=== PATIENT | female | born 1945 | race Caucasian/White ===

== ENCOUNTER 2018-12-29 11:43 | Outpatient (CLI) | payer OTHER ==
[~2018-12-29 11:43] MED LIST: ALANINE MC; AROMASIN25 MG PO; NABUMETONE500 MG PO; PERCOCET 5/3251 TAB PO; TORADOL10 MG PO; [UNRECOGNIZED DRUG - OTHER] PO
== END 2018-12-29 11:53 | disposition home or self-care (01) ==
LOC: NUCLEAR 11:43
DX: M81.0 Age-related osteoporosis without current pathological fracture (principal); C50.411 Malignant neoplasm of upper-outer quadrant of right female breast; Z80.3 Family history of malignant neoplasm of breast

== ENCOUNTER → 2021-03-04 | Emergency (ER) | payer OTHER ==
[~2021-03-04] VITALS: Ht 160 cm; Wt 59.0 kg
[~2021-03-04] MED LIST changes: +AMLODIPINE-OLM1 EAC1; +EC-NAPROSYN500 MG; +LEVOTHYROXINE25 MCG; +NEURONTIN300 MG
== END | disposition home or self-care (01) ==
LOC: ER 15:51
DX: M79.605 Pain in left leg (principal); R20.0 Anesthesia of skin

== ENCOUNTER 2021-03-05 07:19 | Outpatient (CLI) | payer OTHER | END 2021-03-05 07:21 | disposition home or self-care (01) | LOC: NUCLEAR 07:19 | DX: I87.2 Venous insufficiency (chronic) (peripheral) (principal); R20.0 Anesthesia of skin ==

== ENCOUNTER → 2021-03-07 08:13 | Outpatient (CLI) | payer OTHER | END | disposition home or self-care (01) | LOC: NUCLEAR 08:13 | PROVIDERS: ATTEND General Practice | DX: R20.0 Anesthesia of skin (principal) ==

== ENCOUNTER 2023-09-13 09:00 | Inpatient (IN) | payer OTHER ==
[~2023-09-13] VITALS: Ht 160 cm; Wt 61.7 kg
[2023-09-13 10:09] LABS: HEMATOCRIT 37.5 % (36.0-45.00); HEMOGLOBIN 12.2 g/dL (12.0-15.00); MEAN CELL VOLUME 80.9 fL (80.00-100.00); MEAN CORPUSCULAR HEMOGLOBIN 26.3 pg (27.00-32.0); MEAN CORPUSCULAR HGB CONC 32.6 g/dl (32.0-36.0); PLATELET COUNT 250 K/uL (150-450); RED BLOOD COUNT 4.64 M/uL (4.00-6.00); RED CELL DISTRIBUTION WIDTH 14.5 % (11.5-14.5)
[2023-09-13] MEDS ORDERED: COZAAR50 MG PO (10:17)
[2023-09-13 10:55] LABS: PARTIAL THROMBOPLASTIN TIME 27.4 SECONDS (22.0-34.0); PROTHROMBIN TIME 10.5 SECONDS (9.0-11.5)
[2023-09-13 10:57] LABS: ALBUMIN 3.7 gm/dL (3.4-5.0); BILIRUBIN TOTAL 0.34 mg/dL (0.3-1.2); CALCIUM 9.6 mg/dL (8.5-10.1); CREATININE SERUM 0.81 mg/dL (0.55-1.02); GFR 68.75; GLOBULINA 3.5 G/DL (2.4-3.5); POTASSIUM 3.82 mEq/L (3.5-5.1); TOTAL PROTEIN 7.2 gm/dL (6.4-8.2)
[2023-09-13 11:12] LABS: URINE APPEARANCE Clear; URINE BILIRRUBIN Negative (NEGATIVE); URINE BLOOD Negative; URINE COLOR Yellow; URINE GLUCOSE Negative (NEGATIVE); URINE LEUKOCYTE Negative; URINE NITRATE Negative; URINE PROTEIN Negative (NEGATIVE); URINE UROBILINOGEN 0.2 E.U./dl
[2023-09-13 11:20] LABS: URINE BACTERIA 12.5 uL (0.0-1933)
[2023-09-13 11:23] LABS: URINE EPITHELIAL CELLS 0.6 uL (0.0-38.8); URINE RBC 1.8 uL (0.0-20.8); URINE WBC 0.3 uL (0.0-23.2)
[2023-10-04] MEDS ORDERED: VITAMIN D3250 MCG (10:30)
[2023-10-04 12:45] LABS: HEMATOCRIT 35.5 % (36.0-45.00); HEMOGLOBIN 11.6 g/dL (12.0-15.00); RED BLOOD COUNT 4.33 M/uL (4.00-6.00)
[2023-10-05 06:23] LABS: HEMOGLOBIN 10.7 g/dL (12.0-15.00); MEAN CELL VOLUME 80.5 fL (80.00-100.00); MEAN CORPUSCULAR HGB CONC 33.5 g/dl (32.0-36.0); PLATELET COUNT 206 K/uL (150-450); RED BLOOD COUNT 3.98 M/uL (4.00-6.00); RED CELL DISTRIBUTION WIDTH 14.8 % (11.5-14.5)
[2023-10-06 06:45] LABS: HEMATOCRIT 29.7 % (36.0-45.00); HEMOGLOBIN 9.9 g/dL (12.0-15.00); MEAN CORPUSCULAR HEMOGLOBIN 27.1 pg (27.00-32.0); MEAN CORPUSCULAR HGB CONC 33.5 g/dl (32.0-36.0); PLATELET COUNT 187 K/uL (150-450); RED BLOOD COUNT 3.67 M/uL (4.00-6.00); RED CELL DISTRIBUTION WIDTH 14.5 % (11.5-14.5)
[2023-10-06] MEDS ORDERED: BACTRIM DS TAB1 EACH PO (07:45)
[2023-10-06] MEDS ORDERED: XARELTO10 MG PO (07:45)
[2023-10-06] MEDS ORDERED: OXYC1TAB9 PO (07:45)
[2023-10-06] MEDS ORDERED: INTEGRA PLUS C1 EACH PO (07:45)
== END 2023-10-06 14:45 | disposition home or self-care (01) | DRG 470 ==
LOC: SURH 10-04 05:08 → O/R 10-04 05:08 → SURH 10-04 07:00
PROVIDERS: ADMIT Orthopaedic Surgery Sports Medicine; ATTEND Orthopaedic Surgery Sports Medicine
PROC: 0SRC0J9 Replacement of Right Knee Joint with Synthetic Substitute, Cemented, Open Approach (ICD-10-PCS; principal; 2023-10-04 07:00)
DX: M17.11 Unilateral primary osteoarthritis, right knee (principal); I10 Essential (primary) hypertension; E03.9 Hypothyroidism, unspecified

== ENCOUNTER → 2025-01-19 | Emergency (ER) | payer OTHER ==
[~2025-01-19] VITALS: Ht 162.6 cm; Wt 60.8 kg
[~2025-01-19] MED LIST changes: +0.9 % SODIUM CHLORIDE 1,000 ML IV SCH; +AMLODIPINE BESYL5 MG; +BACTRIM DS TAB1 EACH PO; +COZAAR50 MG PO; +CYANOCOBAL1000 MCG/1; +DIPHENOXYLATE HCL/ATROPINE 1 UDTAB TABLET PO ONE; +FAMOTIDINE/PF 20 MG in 0.9 % SODIUM CHLORIDE 8 ML IV PUSH STA; +FAMOTIDINE/PF 20 MG/2 ML VIAL ONE; +INTEGRA PLUS C1 EACH PO; +ONDANSETRON HCL 2 MG/ML VIAL IV ONE; +ONDANSETRON HCL 2 MG/ML VIAL ONE; +OXYC1TAB9 PO; +ROSUVASTATIN CAL5 MG PO; +VITAMIN D3250 MCG; +XARELTO10 MG PO
[2025-01-20 00:05] LABS: HEMATOCRIT 39.5 % (36.0-45.00); MEAN CELL VOLUME 80.8 fL (80.00-100.00); MEAN CORPUSCULAR HEMOGLOBIN 26.5 pg (27.00-32.0); MEAN CORPUSCULAR HGB CONC 32.8 g/dl (32.0-36.0); PLATELET COUNT 224 K/uL (150-450); RED BLOOD COUNT 4.89 M/uL (4.00-6.00); RED CELL DISTRIBUTION WIDTH 14.7 % (11.5-14.5)
[2025-01-20 00:26] LABS: BILIRUBIN TOTAL 0.37 mg/dL (0.3-1.2); CALCIUM 10.2 mg/dL (8.5-10.1); GFR 53.76; GLOBULINA 3.7 G/DL (2.4-3.5); POTASSIUM 4.06 mEq/L (3.5-5.1); TOTAL PROTEIN 7.7 gm/dL (6.4-8.2)
[2025-01-20 01:29] LABS: COVID-19 AG NEGATIVE (NEGATIVE); INFLUENZA A AG NEGATIVE (NEGATIVE)
== END | disposition home or self-care (01) ==
LOC: ER 21:28
PROVIDERS: General Practice
DX: K30 Functional dyspepsia (principal); Z20.822 Contact with and (suspected) exposure to COVID-19; Z88.0 Allergy status to penicillin

== ENCOUNTER 2025-07-13 03:59 | Emergency (ER) | payer OTHER ==
[~2025-07-13] VITALS: Ht 160 cm; Wt 65.8 kg
[~2025-07-13 03:59] MED LIST changes: -0.9 % SODIUM CHLORIDE 1,000 ML IV SCH; -DIPHENOXYLATE HCL/ATROPINE 1 UDTAB TABLET PO ONE; -FAMOTIDINE/PF 20 MG in 0.9 % SODIUM CHLORIDE 8 ML IV PUSH STA; -FAMOTIDINE/PF 20 MG/2 ML VIAL ONE; -ONDANSETRON HCL 2 MG/ML VIAL IV ONE; -ONDANSETRON HCL 2 MG/ML VIAL ONE
[2025-07-13] MEDS ORDERED: KETOROLAC TROMETHAMINE 60 MG VIAL IM STA (05:51)
[2025-07-13] MEDS ORDERED: ORPHENADRINE CITRATE 30 MG/ML AMPUL IM STA (05:51)
[2025-07-13] MEDS ORDERED: KETOROLAC TROMETHAMINE 60 MG VIAL IM ONE (05:56)
[2025-07-13] MEDS ORDERED: ORPHENADRINE CITRATE 30 MG/ML AMPUL ONE (05:56)
[2025-07-13] MEDS ORDERED: MELOXICAM15 MG PO (07:58)
== END 2025-07-13 08:03 ==
LOC: ER 04:00
DX: M54.2 Cervicalgia (principal); M51.369 Other intervertebral disc degeneration, lumbar region without mention of lumbar back pain or lower extremity pain; M85.88 Other specified disorders of bone density and structure, other site; M62.830 Muscle spasm of back; I10 Essential (primary) hypertension; Z88.0 Allergy status to penicillin
CPT/HCPCS: 72040; 96372; 99283; J1885; J2360